=== PATIENT | female | born 1985 | race Caucasian/White ===

== ENCOUNTER 2022-07-17 07:17 | Day surgery (SDC) | payer OTHER ==
[~2022-07-17] VITALS: Ht 157.5 cm; Wt 71.7 kg
--- NOTE | 2022-07-17 07:10 | NUR ---
PT AMBULATED TO ROOM WITH SPOUSE, BOTH HAVE BEEN INFORMED OF POC. NEITHER HAVE QUESTIONS AT THIS TIME. PT HAS BEEN ORIENTED TO ROOM, NEARBY BATHROOM AND CALL [employer] SYSTEM. PT IS A&OX4. PT IN NAD. PT HAS SENT JWELRY WITH SPOUSE, ASIDE FROM LEFT GOLD BRACELET THAT IS UNREMOVABLE. PT HAS BAG NEARBY THAT WILL BE IN PTS ROOM AT ALL TIMES. PT HAS NO COMPLAINTS AT THIS TIME, WILL CONTINUE TO MONITOR.
[2022-07-17 07:20] VITALS: BP 115/84
[2022-07-17 07:33] LABS: HEMATOCRIT 40.3 % (37.0-47.0); HEMOGLOBIN 13.4 g/dl (12.0-16.0); IMMATURE GRANULOCYTES 0.2 % (0.0-5.0); MEAN CELL VOLUME 94.8 fL CALC (80.0-100.0); MEAN CORPUSCULAR HGB 31.5 pG CALC (26.0-32.0); MEAN CORPUSCULAR HGB CONC 33.3 g/dL CAL (32.0-36.0); NEUT# 4.43 thou/uL (2.00-7.15); RED BLOOD COUNT 4.25 mill/uL (4.20-5.60); RED CELL DISTRI WIDTH 11.8 % (11.5-15.5)
[2022-07-17 08:00] VITALS: BP 105/74
--- NOTE | 2022-07-17 08:00 | NUR ---
PT HAVING SIGNS OF WITHDRAWL, CALL MADE OUT TO PHYS AND DERIK R'CD. WILL REASSESS PT.
[2022-07-17 08:05] LABS: ALBUMIN 4.8 g/dL (3.2-5.0); ALKALINE PHOSPHATASE 77 u/l (38-126); ANION GAP 14 (6-22 (CALC)); BILIRUBIN, TOTAL 0.2 mg/dL (0.0-1.4); BUN 21 mg/dL (7-17); BUN/CREATININE RATIO 28 (12-20 (CALC)); CARBON DIOXIDE 28 mmol/l (22-30); CHLORIDE 92 mmol/l (95-108); CREATININE 0.8 mg/dL (0.5-1.0); GFR FOR AFR.AMER. > 60 ML/MIN (>=60 (CALC)); GFR OTHER RACES > 60 ML/MIN (>=60 (CALC)); POTASSIUM 4.5 mmol/l (3.5-5.1); SGOT/AST 26 u/l (14-36); SODIUM 130 mmol/l (137-146); TOTAL PROTEIN 7.5 g/dL (6.3-8.2)
--- NOTE | 2022-07-17 09:03 | NUR ---
PT REASSESSED, PT SLEEPING.
[2022-07-17 09:04] VITALS: BP 87/57
--- NOTE | 2022-07-17 13:05 | NUR ---
Induction Note Patient to [facility] procedure room. Time out performed at 1305. Patient placed on monitors, Jamaal hugger, bilateral wrist restraints applied for ET tube protection. Versed 5mg given IV push at 1306 Tourniquet applied to RIGHT arm Lidocaine 100mg given [id number] IV push followed by Rocoronium 10mg at 1308 IV push and held for 90 seconds. Propofol bolus of 110mg given at 1309 IV push. Succinylcholine 80mg given IV push at 1310. Smooth intubation with 7.5 ETT. Positive CO2. Positive Auscultation for air exchange. Patient placed on ventilator for spontaneous ventilation. Placed on Propofol IV drip at 1311. OG inserted. Positive air on auscultation. Positive gastric content. Stomach washed at this time.
--- NOTE | 2022-07-17 13:18 | NUR ---
OG close note Stomach washed at this time. Naltrexone 50 mg with Clonidine 0.1 mg via OG tube. OG will be clamped for 45 minutes.
--- NOTE | 2022-07-17 14:03 | NUR ---
OG open note OG open at this time. Gastric content draining into drainage bag. OG to drain for 45 minutes. Propofol will be titrated down based on patient.
--- NOTE | 2022-07-17 14:50 | NUR ---
OG close note Stomach washed at this time. Naltrexone 50 mg via OG tube. OG will be clamped for 45 minutes.
[2022-07-17] MEDS ORDERED: NALTREXONE50 MG PO (15:49)
[2022-07-17] MEDS ORDERED: KLONOPIN2 MG PO (15:49)
[2022-07-17] MEDS ORDERED: CLONIDINE0.1 MG PO (15:50)
--- NOTE | 2022-07-17 18:00 | NUR ---
OG close note Stomach washed at this time. Naltrexone 12.5 mg with Clonidine 0.2 mg via OG tube. OG will be clamped for 45 minutes.
--- NOTE | 2022-07-17 18:30 | NUR ---
Extubation note Closing medications given Benadryl 50mg IV push, Decadron 10mg IV push,Magnesium 4 grams IV, Zofran 8mg IV push, Octreotide 100mcg SC. Stomach washed out prior to extubation. Suctioned gastric content. OG removed. Patient extubated. Propofol Discontinued. Wrist restraints removed. Jamaal hugger Removed. See [facility] Moderate sedate recovery record for further notes and assessment.
--- NOTE | 2022-07-17 18:45 | NUR ---
PT TRANSFERRED TO ROOM, PT IS AROUSABLE. 2LNC, LR @ 250ML/HR. REPORT WAS GIVEN TO TASNEEM ABREU. PT BED ALARM ACTIVE. PT BELONGINGS NEARBY.
[2022-07-17 18:52] VITALS: BP 105/65
--- NOTE | 2022-07-17 19:15 | NUR ---
PATIENT RESTING IN BED. ALERT. ABLE TO MAKE NEEDS KNOWN. NO SIGNS OF DISTRESS. NO COMPLAINTS VOICED AT THIS TIME. BED REMAINS IN LOW POSITION. CALL LIGHT IN REACH. BED ALARM ACTIVE.
[2022-07-17 22:21] VITALS: BP 100/64
[2022-07-17 23:31] VITALS: BP 128/75
--- NOTE | 2022-07-17 23:37 | NUR ---
PATIENT WAS UPSET THAT SHE IS AWAKE. STATED THAT SHE WAS SUPPOSED TO SLEEP THE ENTIRE NIGHT. SHE CALLED HER AND TOLD HIM AND THE NURSING STAFF THAT SOMEONE STOLE NISHA OUT OF HER PURSE. PATIENT DEMANDED MORE MEDICATION. DIRECTOR OF ANR AND PHYSICIAN BOTH INFORMED. PATIENT HAS MORE MEDICATION ORDERED AND SHE IS CALMING DOWN. AWAITING REASSESSMENT BY THE NURSE.
--- NOTE | 2022-07-18 01:40 | NUR ---
PATIENT RESTING. APPEARS TO BE IN NO MORE DISTRESS.
[2022-07-18 03:40] VITALS: BP 114/79
[2022-07-18 03:55] LABS: HEMATOCRIT 38.5 % (37.0-47.0); HEMOGLOBIN 13.1 g/dl (12.0-16.0); IMMATURE GRANULOCYTES 0.5 % (0.0-5.0); MEAN CELL VOLUME 94.8 fL CALC (80.0-100.0); MEAN CORPUSCULAR HGB 32.3 pG CALC (26.0-32.0); NEUT# 10.08 thou/uL (2.00-7.15); RED BLOOD COUNT 4.06 mill/uL (4.20-5.60); RED CELL DISTRI WIDTH 11.9 % (11.5-15.5)
--- NOTE | 2022-07-18 04:35 | NUR ---
PATIENT APPEARS RESTING IN BED WITH EYES CLOSED. RECEIVED ALL SCHEDULED 0400 MEDS WITHOUT DIFFICULTY. REMAINS NONCOMPLIANT AT TIMES. TAKES THINGS OUT OF HER BAG. BED REMAINS IN LOW POSITION. CALL LIGHT IN REACH. BED ALARM ACTIVE FOR SAFETY.
[2022-07-18 04:39] LABS: ALKALINE PHOSPHATASE 72 u/l (38-126); ANION GAP 13 (6-22 (CALC)); BILIRUBIN, TOTAL 0.5 mg/dL (0.0-1.4); BUN 12 mg/dL (7-17); BUN/CREATININE RATIO 19 (12-20 (CALC)); CARBON DIOXIDE 26 mmol/l (22-30); CHLORIDE 103 mmol/l (95-108); CREATININE 0.7 mg/dL (0.5-1.0); GFR FOR AFR.AMER. > 60 ML/MIN (>=60 (CALC)); GFR OTHER RACES > 60 ML/MIN (>=60 (CALC)); MAGNESIUM 2.4 mg/dL (1.6-2.3); POTASSIUM 4.3 mmol/l (3.5-5.1); SGOT/AST 36 u/l (14-36); SODIUM 138 mmol/l (137-146); TOTAL PROTEIN 6.7 g/dL (6.3-8.2)
[2022-07-18 07:55] VITALS: BP 92/62
--- NOTE | 2022-07-18 08:00 | NUR ---
RECEIVED REPORT FROM MANAGER ASSURANCE RN. PATIENT RESTING IN BED IN RIGHT LATERAL RECUMBENT POSITION WITH EYES CLOSED. PATIENT IS IN ROOM AIR AND IS A&O. ASSESSMENT COMPLETED. BED IN LOWEST POSITION, CALL LIGHT WITHIN REACH, SAFETY PRECAUTIONS IN PLACE.
[2022-07-18 08:02] VITALS: BP 99/62
--- NOTE | 2022-07-18 12:00 | NUR ---
PATIENT AWAKE, IN THE SHOWER. PATIENT DENIES ANY PAIN AT THIS TIME, NO SIGNS OF DISTRESS NOTED. PATIENT A&O. BED IN LOWEST POSITION, CALL LIGHT AND BEDSIDE TABLE WITHIN REACH.
--- NOTE | 2022-07-18 12:55 | NUR ---
Discharge instructions given. Patient verbalizes understanding of same. Discharged in stable condition via Ambulatory to Home with staff. All belongings sent with pt.
== END 2022-07-18 12:47 | disposition home or self-care (01) | DRG 897 ==
LOC: ANR 07:17 → ANR-I 07:19 → ANR 09:00 → MS2 18:45 → ANR 07-18 12:47
PROVIDERS: ATTEND Anesthesiology
DX: F11.20 Opioid dependence, uncomplicated (principal)
CPT/HCPCS: J2354